=== PATIENT | female | born 1985 | race Caucasian/White ===

== ENCOUNTER → 2023-05-07 08:30 | Outpatient (CLI) | payer OTHER, SELFPAY ==
--- NOTE | 2023-05-07 | DI.RAD.S_ITS ---
PROCEDURE: [place] SHOULDER INJECTION MR/CT RT INDICATIONS: Pain in right shoulder COMPARISON: [facility], MR, MR SHOULDER RT W CON, 05/07/2023, 9:38. TECHNIQUE: The indications, alternatives, benefits, risks, and complications of the procedure were explained to the patient. Written informed consent was obtained and placed in the chart. The shoulder was examined fluoroscopically and a site for needle placement chosen for entry into the glenohumeral joint from an anterior approach. The skin was prepped and draped in a sterile fashion, and 1% lidocaine infiltrated from skin down to joint capsule. A spinal needle was inserted into the glenohumeral joint, and a small amount of iodinated contrast media injected to confirm intra-articular placement of the needle tip. This was followed by approximately 12 mL dilute solution of a gadolinium containing MR contrast agent. The needle was removed and a dressing was applied. The patient was given postprocedural instructions and sent to the MR suite for MR imaging. FINDINGS: A single fluoroscopic spot image demonstrates intra-articular location of injected iodinated contrast. IMPRESSION: Successful fluoroscopically guided administration of dilute Gadolinium solution into the shoulder joint for MR arthrogram. Dictated by: Silvino Schafer M.D. on 05/07/2023 at 12:15 Approved by: Silvino Schafer M.D. on 05/07/2023 at 12:15
--- NOTE | 2023-05-07 10:16 | DI.MRI.S_ITS ---
PROCEDURE: MR SHOULDER RT W CON INDICATIONS: Pain in right shoulder TECHNIQUE: After the administration of 12 mL of dilute intra-articular Gadolinium contrast, oblique coronal T1 and T2 spin echo with fat saturation, oblique sagittal T1 spin echo with and without fat saturation, oblique sagittal T2 fast spin echo with fat saturation, axial T1 spin echo with fat saturation through the shoulder. COMPARISON: [facility], , [place] SHOULDER INJECTION MR/CT RT, 05/07/2023, 8:56. FINDINGS: Image quality: Excellent. Rotator cuff: The supraspinatus, infraspinatus, and teres minor tendons are intact. There is mild subscapularis tendinosis. The rotator cuff musculature is normal in bulk. Bones and bursae: No acute trabecular bone injury or fracture. Postsurgical changes are seen at the anterior inferior glenoid. Small chronic traction cystic changes at the posterior superior humeral head. No focal cartilage defect in the glenohumeral joint. Moderate degenerative changes are seen in the acromioclavicular joint with subchondral cystic changes and edema and small marginal osteophytes. There is trace noncommunicating fluid in the subacromial/subdeltoid bursa. No suspicious filling defect in the glenohumeral joint space. Small air bubbles are seen in the superior subscapularis recess related to the arthrogram injection. Capsule and soft tissues: Postsurgical changes from prior anterior inferior labral repair. There is uptake of intra-articular contrast material at the anterior to inferior labrum that is suspicious for recurrent nondisplaced tearing. There also appears to be involvement of the posterior and superior labrum that is less prominent. There is [id number] proximal biceps long head tendinosis. Glenohumeral ligaments are intact. IMPRESSION: 1. Postsurgical changes from prior labral repair. There is recurrent nearly circumferential nondisplaced labral tearing. 2. [id number] proximal biceps long head tendinosis. 3. Mild subscapularis tendinosis. No significant rotator cuff tendon tear is seen. 4. Moderate acromioclavicular joint osteoarthrosis. Approved by: Sterling Hannah M.D. on 05/07/2023 at 15:55
[2023-05-07] MEDS: LIDOCAINE 1% 20 ML INJ (10:54)
[2023-05-07] MEDS: SODIUM CHLORIDE 0.9 % 20 ML VIAL IV (10:55)
== END ==
PROVIDERS: Referring Provider Orthopaedic Surgery; Visit Provider Orthopaedic Surgery
DX: M19.011 Primary osteoarthritis, right shoulder (principal); M25.511 Pain in right shoulder
CPT/HCPCS: 23350; 73222; 77002

== ENCOUNTER → 2024-04-17 15:06 | Outpatient (CLI) | payer OTHER, SELFPAY ==
--- NOTE | 2024-04-17 15:07 | DI.MRI.S_ITS ---
PROCEDURE: MR SHOULDER LT WO CON INDICATIONS: LEFT SHOULDER PAIN TECHNIQUE: Noncontrast oblique coronal T2 fast spin echo with fat saturation, oblique sagittal T1 spin echo and T2 fast spin echo with fat saturation, axial T1 spin echo and T2 fast spin echo with fat saturation through the shoulder. COMPARISON: None. FINDINGS: Image quality: Diagnostic Rotator cuff: Bulk: No significant atrophy Teres minor: Tiny interstitial tear near the distal tendon Supraspinatus: Mild tendinopathy, possibly calcific component. Small articular surface and interstitial tears at the distal tendon. Moderate focal interstitial tear at the most anterior fibers in the proximal tendon Infraspinatus: Mild tendinopathy Subscapularis: Intact Bones and bursae: GH joint: Overall minimal degenerative changes AC joint: Moderate degenerative changes, with edema and capsular hypertrophy. Humeral head: No acute fracture Scapula and acromion: Intact Bursa: No pathologic fluid Capsule: Labrum: Probable small tear at the superior posterior labrum. Probable scarring with mild signal abnormality seen at the anterior inferior aspect. Long head biceps tendon: Intra-articular tendinopathy and possible small split tear at the anchor (8/8) IGHL: Intact Rotator interval: Preserved fat signal Soft tissues: No axillary adenopathy. Lungs are not well seen. IMPRESSION: Multiple rotator cuff partial-thickness tears and background tendinopathy. There may be a calcific component involving the supraspinatus. A moderate focal interstitial tear is seen in the anterior most fibers of the supraspinatus. Overall minimal glenohumeral and moderate acromioclavicular degenerative changes. Probable small tear at the superior posterior labrum. Probable scarring with mild signal abnormality seen at the anterior inferior aspect. Possible small split tear at the biceps anchor also seen. Dictated by: Jacinto Valadez M.D. on 04/17/2024 at 16:23 Approved by: Jacinto Valadez M.D. on 04/17/2024 at 16:29
== END ==
LOC: MRI 15:07
PROVIDERS: Referring Provider Nurse Practitioner Family; Visit Provider Nurse Practitioner Family
DX: M75.112 Incomplete rotator cuff tear or rupture of left shoulder, not specified as traumatic (principal); M25.512 Pain in left shoulder
CPT/HCPCS: 73221

== ENCOUNTER → 2024-07-02 09:16 | Outpatient (CLI) | payer OTHER, SELFPAY ==
--- NOTE | 2024-07-02 09:18 | DI.US.S_ITS ---
PROCEDURE: US INJECTION TENDON SHEATH INDICATIONS: Bicipital tendinitis TECHNIQUE: Preprocedural imaging demonstrated an intact long head of the biceps tendon in the bicipital groove. Moderate acromioclavicular osteoarthrosis was also present. 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 Informed consent was obtained and the injection site was marked with ink. The patient, the procedure, and the site were confirmed during a pre-procedure huddle. Using sterile technique, local anesthesia, and sonographic guidance, a 25 gauge needle was advanced through the skin into the left long head of the biceps tendon sheath. Following sonographic confirmation of adequate placement in the tendon sheath, a mixture of 0.5 cc 40 mg/mL Kenalog + 0.5 cc 1% lidocaine + 0.5 cc 0.5% bupivacaine was injected into the tendon sheath. A similar mixture was injected into the left acromioclavicular joint. The needle was then removed, and hemostasis was obtained with direct pressure. No complications were encountered. Multiple images were obtained and archived. COMPARISON: [facility], MR, MR SHOULDER LT WO CON, 04/17/2024, 15:31. [facility], MR, MR SHOULDER RT W CON, 05/07/2023, 9:38. FINDINGS: There is successful administration of anesthetic-steroid injection into the left long head of the biceps tendon sheath and acromioclavicular joint. There were no complications. IMPRESSION: Successful ultrasound guided administration of steroid and anaesthetic solution into the left long head of the biceps tendon sheath and acromioclavicular joint. Dictated by: Syed Esparza M.D. on 07/02/2024 at 10:56 Approved by: Syed Esparza M.D. on 07/02/2024 at 11:02
== END ==
PROVIDERS: Referring Provider Student in an Organized Health Care Education/Training Program; Visit Provider Student in an Organized Health Care Education/Training Program
DX: M75.20 Bicipital tendinitis, unspecified shoulder (principal)
CPT/HCPCS: 20550; 76942

== ENCOUNTER → 2024-07-30 11:01 | Outpatient (CLI) | payer OTHER, SELFPAY ==
--- NOTE | 2024-07-30 11:02 | DI.RAD.S_ITS ---
PROCEDURE: XR SHOULDER RT MIN 2V INDICATIONS: right shoulder pain TECHNIQUE: Four views of the right shoulder were acquired. COMPARISON: None. FINDINGS: Bones: There are no osseous abnormalities. Acromioclavicular and glenohumeral joints: Normal in width and alignment without arthritic change Soft tissues: No soft tissue swelling, calcification or mass. IMPRESSION: Normal shoulder Dictated by: Sumeet Beck M.D. on 07/31/2024 at 11:55 Approved by: Sumeet Beck M.D. on 07/31/2024 at 11:55
== END ==
PROVIDERS: Referring Provider Orthopaedic Surgery; Visit Provider Orthopaedic Surgery
DX: M25.511 Pain in right shoulder (principal); M75.51 Bursitis of right shoulder; M75.21 Bicipital tendinitis, right shoulder; Z68.27 Body mass index [BMI] 27.0-27.9, adult
CPT/HCPCS: 20610; 73030; 99213; J3301